=== PATIENT | female | born 1990 | race Caucasian/White ===

== ENCOUNTER 2017-07-27 21:11 | Emergency (ER) | payer OTHER ==
[2017-07-27] MEDS: HYDROcodon/IBUPROFEN 7.5/200MG 1 TAB TABLET PO (21:47)
== END 2017-07-27 22:40 | disposition home or self-care (01) ==
LOC: ER 21:11
DX: S80.02XA Contusion of left knee, initial encounter (principal); E11.9 Type 2 diabetes mellitus without complications; E78.00 Pure hypercholesterolemia, unspecified; Z90.49 Acquired absence of other specified parts of digestive tract; Z98.890 Other specified postprocedural states; W18.39XA Other fall on same level, initial encounter; Y93.89 Activity, other specified; Y99.8 Other external cause status; Y92.89 Other specified places as the place of occurrence of the external cause
CPT/HCPCS: 73564; 99284